=== PATIENT | male | born 2000 | race Caucasian/White ===

== ENCOUNTER 2023-11-24 12:56 | Emergency (ER) | payer BC ==
[~2023-11-24] VITALS: Ht 182.9 cm; Wt 81.8 kg
[2023-11-24 13:00] VITALS: TEMP 98.1
[2023-11-24 15:43] VITALS: BP 106/69; PULSE 75
== END 2023-11-24 15:43 | disposition home or self-care (01) ==
LOC: COL.ER 12:56
DX: R06.00 Dyspnea, unspecified (principal)

== ENCOUNTER → 2024-02-09 | Outpatient (CLI) | payer BC ==
[~2024-02-09] MED LIST: Albuterol 0.083% Neb Soln 2.5 MG/3 ML UD IH ONE; Methacholine Vial A (Clear Label Base-Cntrl) IH ONE; Methacholine Vial B (Red Label) 0.0625 MG/ML 3 ML VIAL.NEB IH ONE; Methacholine Vial C (Orange Label) 0.25 MG/ML 3 ML VIAL.NEB IH ONE; Methacholine Vial D (Yellow Label) 1 MG/ML 3 ML VIAL.NEB IH ONE; Methacholine Vial E (Green Label) 4 MG/ML 3 ML VIAL.NEB IH ONE
== END ==
LOC: COL.CARD 08:00
DX: R06.02 Shortness of breath (principal)
CPT/HCPCS: J7674

== ENCOUNTER 2024-02-26 08:01 | Emergency (ER) | payer BC ==
[~2024-02-26] VITALS: Ht 182.9 cm; Wt 84.1 kg
[2024-02-26 08:06] VITALS: TEMP 98.5
[2024-02-26] MEDS ORDERED: NS 1,000 ML IV ONE (08:30)
[2024-02-26] MEDS ORDERED: Albuterol/Ipratropium 3 MG-0.5 MG/3 ML Neb Soln IH ONE (08:30)
[2024-02-26] MEDS ORDERED: methylPREDNISolone Sod Succ 125 MG/2 ML VIAL IV ONE (08:30)
[2024-02-26 08:40] LABS: BASO % 0.2 % (0.0-2.0); EOS % 0.1 % (0.0-4.0); GRAN # 6.9 K/mm3 (1.4-6.5); GRAN % 75.7 % (42.2-75.2); HEMATOCRIT 41.4 % (42.0-52.0); HEMOGLOBIN 13.9 g/dl (13.5-18.0); LYMPH # 1.2 K/mm3 (1.2-3.4); LYMPH % 12.5 % (20.0-51.0); MEAN CELL VOLUME 87 fl (80.0-100.0); MEAN CORPUSCULAR HEMOGLOBIN 29 pg (27-31); MEAN CORPUSCULAR HGB CONC 34 g/dl (33.0-37.0); MEAN PLATELET VOLUME 11.4 fl (7.4-10.4); MONO % 11.2 % (1.7-9.3); PLATELET COUNT 179 K/mm3 (130-400); RED BLOOD COUNT 4.75 M/mm3 (4.20-5.60); REDCELL DISTRIBUTION WIDTH-CV 11.7 % (11.5-14.5)
[2024-02-26 08:56] LABS: ALANINE AMINOTRANSFERASE 9 U/L (0-55); ALBUMIN 3.9 g/dL (3.5-5.0); ALKALINE PHOSPHATASE 56 U/L (40-150); ANION GAP 10 mmol/L (7-16); AST,SGOT 13 U/L (5-34); BILIRUBIN,TOTAL 0.5 mg/dL (0.2-1.2); BLOOD UREA NITROGEN 8 mg/dL (9-21); CALCIUM 9.3 mg/dL (8.4-10.2); CHLORIDE 106 mEq/L (98-107); CREATININE, serum 0.88 mg/dL (0.72-1.25); GLUCOSE 119 mg/dL (70-99); POTASSIUM 3.8 mEq/L (3.5-4.5); SODIUM 137 mEq/L (136-145); TOTAL PROTEIN 6.2 g/dl (6.2-8.1)
[2024-02-26] MEDS ORDERED: Iohexol 300 - 100 ML VIAL IV ONE (09:02)
[2024-02-26] MEDS ORDERED: NS 100 ML IV SCH (09:02)
[2024-02-26 09:04] LABS: TROPONIN-I < 0.010 ng/mL (0.00-0.033)
[2024-02-26 10:05] VITALS: BP 122/78; PULSE 76
== END 2024-02-26 10:24 | disposition home or self-care (01) ==
LOC: COL.ER 08:01
PROVIDERS: Personal Emergency Response Attendant
DX: R06.02 Shortness of breath (principal); R91.8 Other nonspecific abnormal finding of lung field
CPT/HCPCS: J2919; J7030; Q9967

== ENCOUNTER → 2024-02-28 | Outpatient (CLI) | payer BC ==
[2024-02-29 18:29] LABS: TB GOLD INTERPRETATION Negative (Negative)
[2024-03-03 06:50] LABS: HISTOPLASMA MYCELIAL Negative (Neg:<1:2)
[2024-03-03 14:08] LABS: HISTOPLASMA ID Negative (Negative); HISTOPLASMA YEAST Negative (Neg:<1:2)
== END ==
LOC: COL.LAB 13:44
PROVIDERS: Physician Assistant
DX: R91.1 Solitary pulmonary nodule (principal)